=== PATIENT | female | born 1965 | race American Indian/Alaskan Native ===

== ENCOUNTER 2020-11-25 12:53 | Emergency (ER) | payer SELFPAY ==
[2020-11-25 13:07] VITALS: BP 137/87
[2020-11-25] MEDS ORDERED: ASPIRIN 325 MG TAB PO ONE (13:29)
[2020-11-25 14:22] LABS: Basophils % (Auto) 0.8 % (0.0-1.8); Eosinophils # (Auto) 0.2 K/mm3 (0.0-0.4); Eosinophils % (Auto) 2.5 % (0.0-4.3); Hematocrit 37.5 % (30.3-42.9); Hemoglobin 12.8 gm/dl (10.1-14.3); Lymphocytes % (Auto) 32.9 % (13.4-35.0); Mean Corpuscular HGB Conc 34 % (30-34); Mean Corpuscular Volume 84 fl (79-97); Monocytes # (Auto) 0.4 K/mm3 (0.0-0.8); Monocytes % (Auto) 6.2 % (0.0-7.3); Platelet Count 317 K/mm3 (140-440); Red Blood Count 4.46 M/mm3 (3.65-5.03); Red Cell Distribution Width 15.5 % (13.2-15.2)
[2020-11-25 14:49] LABS: Alanine Aminotransferase 9 units/L (7-56); Albumin 4.7 g/dL (3.9-5); BUN/Creatinine Ratio 16; Blood Urea Nitrogen 14 mg/dL (7-17); Calcium 10.4 mg/dL (8.4-10.2); Hemolysis Index 6
--- NOTE | 2020-11-26 09:56 | Electrocardiograph Report ---
[facility] Test Date: 2020-11-25 Test Time: 13:13:54 Pat Name: ROBERT GOFF Department: Room: Gender: F Psychosocial Rehabilitation Counselor: VERONA : 1965 Requested By: ED DOC Order Number: [id number] Reading MD: Abisai Britt Measurements Intervals [place] Rate: 88 P: 67 AR: 145 QRS: 12 QRSD: 93 T: 53 QT: 379 QTc: 460 Interpretive Statements Sinus rhythm Probable left atrial enlargement non specific st-t No previous ECG available for comparison Electronically Signed On 11-26-2020 9:56:22 EDT by Abisai Britt
== END 2020-11-25 19:30 | disposition left against medical advice (07) ==
LOC: ED 12:53
DX: Z53.21 Procedure and treatment not carried out due to patient leaving prior to being seen by health care provider (principal)
CPT/HCPCS: 36415; 71046; 80053; 84484; 85025; 93005